=== PATIENT | female | born 1985 | race Caucasian/White ===

== ENCOUNTER 2018-01-19 20:28 | Emergency (ER) | payer OTHER ==
[2018-01-19 20:36] VITALS: BP 123/54; PULSE 110; TEMP 98.8; BMI 32.1
[2018-01-19] MEDS ORDERED: ACETAMINOPHEN 325 MG TABLET (FP) PO ONE (20:36)
--- NOTE | 2018-01-19 20:37 | PDOC ---
Rapid Medical Evaluation Time Seen by Provider: 01/19/18 20:29 Medical Evaluation: Allergies Allergy/AdvReac Type Severity Reaction Status Date / Time No Known Allergies Allergy Verified 11/13/17 21:21 01/19/18 20:32 Pt presents for 2 hours of lower abdominal pain. Pt is 16 weeks . States it feels like a cramping pain. Denies fevers, chills, vaginal bleeding. Exam: Pt appears anxious. Sitting in wheel chair. Suprapubic tenderness on exam. abdomen soft non-distended no rebound or guarding Orders: Labs, US, Tyenol Pt to proceed to ED for further evaluation Discharge Disposition - Diagnosis Abdominal pain during Qualifiers: Trimester: second trimester Qualified Code(s): O26.892 - Other specified related conditions, second trimester; R10.9 - Unspecified abdominal pain - Referrals - Patient Instructions - Post Discharge Activity
[2018-01-19 21:56] LABS: BASO % 0.4 % (0-2.0); EOS % 0.6 % (0-4.5); HEMATOCRIT 32.3 % (32.4-45.2); HEMOGLOBIN 10.8 GM/dL (10.7-15.3); LYMPH % 22.8 % (8-40); MCH 28.1 pg (25.7-33.7); MCHC 33.5 g/dl (32.0-36.0); MEAN CELL VOLUME 83.9 fl (80-96); MEAN PLT VOLUME 7.7 fl (7.5-11.1); MONO % 5.9 % (3.8-10.2); NEUT % 70.3 % (42.8-82.8); PLATELET COUNT 353 K/MM3 (134-434); RBC 3.85 M/mm3 (3.60-5.2); RDW 14.5 % (11.6-15.6); WHITE BLOOD COUNT 9.3 K/mm3 (4.0-10.0)
[2018-01-19 22:27] LABS: ALBUMIN 3.2 g/dl (3.4-5.0); ANION GAP 7 (8-16); BILIRUBIN,TOTAL 0.3 mg/dL (0.2-1.0); BLOOD UREA NITROGEN 4 mg/dL (7-18); CALCIUM 9.3 mg/dL (8.5-10.1); CHLORIDE 104 mmol/L (98-107); CO2 24 mmol/L (21-32); CREATININE 0.5 mg/dL (0.55-1.02); GLUCOSE,RANDOM 91 mg/dL (74-106); POTASSIUM 4.7 mmol/L (3.5-5.1); SGOT/AST 25 U/L (15-37); SGPT/ALT 27 U/L (12-78); SODIUM 135 mmol/L (136-145)
--- NOTE | 2018-01-19 22:31 | PDOC ---
History of Present Illness - General Chief Complaint: Pain Stated Complaint: PAIN Time Seen by Provider: 01/19/18 20:29 History Source: Patient - History of Present Illness Initial Comments: 01/19/18 23:49 32 year old 16 week female with pelvic pain x1 day. denies urinary symptoms 01/20/18 00:07 Past History - Past Medical History Allergies/Adverse Reactions: Allergies Allergy/AdvReac Type Severity Reaction Status Date / Time No Known Allergies Allergy Verified 01/19/18 20:33 COPD: No Other medical history: Pt denies - Surgical History Appendectomy: Yes Cardiac Surgery: Yes (heart surgery at 3 years old) - Suicide/Smoking/Psychosocial Hx Smoking History: Never smoked Have you smoked in the past 12 months: No Information on smoking cessation initiated: No Hx Alcohol Use: No Drug/Substance Use Hx: No Substance Use Type: None *Physical Exam - Vital Signs Last Vital Signs Temp Pulse Resp BP Pulse Ox 98.8 F 110 H 18 123/54 99 01/19/18 20:34 01/19/18 20:34 01/19/18 20:34 01/19/18 20:34 01/19/18 20:34 - Physical Exam General Appearance: Yes: Appropriately Dressed Respiratory/Chest: positive: Lungs Clear, Normal Breath Sounds Female Pelvic Exam: positive: normal external exam, cervical os closed, other ( white discharge in vaginal vault) Gastrointestinal/Abdominal: positive: Normal Bowel Sounds, Soft Musculoskeletal: positive: Normal Inspection. negative: CVA Tenderness Extremity: positive: Normal Capillary Refill Integumentary: positive: Normal Color, Dry, Warm Neurologic: positive: Fully Oriented, Alert, Normal Mood/Affect ED Treatment Course - LABORATORY CBC & Chemistry Diagram: 01/19/18 21:38 01/19/18 21:38 - ADDITIONAL ORDERS Additional order review: Laboratory Results 01/19/18 21:38 Sodium 135 L Potassium 4.7 Chloride 104 Carbon Dioxide 24 Anion Gap 7 L BUN 4 L Creatinine 0.5 L Creat Clearance w eGFR > 60 Random Glucose 91 Calcium 9.3 Total Bilirubin 0.3 AST 25 ALT 27 Albumin 3.2 L 01/19/18 21:38 RBC 3.85 MCV 83.9 MCHC 33.5 RDW 14.5 MPV 7.7 Neutrophils % 70.3 Lymphocytes % 22.8 Monocytes % 5.9 Eosinophils % 0.6 Basophils % 0.4 - Medications Given in the ED: ED Medications Discontinued Medications Generic Name Dose Route Start Last Admin Trade Name Mello PRN Reason Stop Dose Admin Acetaminophen 650 mg 01/19/18 20:36 01/19/18 20:37 Tylenol - PO 01/19/18 20:37 650 mg ONCE ONE Administration *DC/Admit/Observation/Transfer Diagnosis at time of Disposition: Abdominal pain during Qualifiers: Trimester: second trimester Qualified Code(s): O26.892 - Other specified related conditions, second trimester - Discharge Dispostion Disposition: HOME - Referrals Referrals: ON STAFF,NOT [Primary Care Provider] - - Patient Instructions Printed Discharge Instructions: DI for Pelvic Pain Additional Instructions: drink plenty of fluids follow up with [facility] as soon as possible, return to the ER if worsening symptoms, vaginal bleeding, severe abdominal pain , fever - Post Discharge Activity
[2018-01-19 22:43] LABS: ALK PHOS 74 U/L (45-117); TOT PROT 7.6 g/dl (6.4-8.2)
--- NOTE | 2018-01-19 23:03 | PDOC ---
*Physical Exam - Vital Signs Last Vital Signs Temp Pulse Resp BP Pulse Ox 98.8 F 110 H 18 123/54 99 01/19/18 20:34 01/19/18 20:34 01/19/18 20:34 01/19/18 20:34 01/19/18 20:34 ED Treatment Course - LABORATORY CBC & Chemistry Diagram: 01/19/18 21:38 01/19/18 21:38 - ADDITIONAL ORDERS Additional order review: Laboratory Results 01/19/18 21:38 Sodium 135 L Potassium 4.7 Chloride 104 Carbon Dioxide 24 Anion Gap 7 L BUN 4 L Creatinine 0.5 L Creat Clearance w eGFR > 60 Random Glucose 91 Calcium 9.3 Total Bilirubin 0.3 AST 25 ALT 27 Alkaline Phosphatase 74 Total Protein 7.6 Albumin 3.2 L Beta HCG, Quant .7 01/19/18 21:38 RBC 3.85 MCV 83.9 MCHC 33.5 RDW 14.5 MPV 7.7 Neutrophils % 70.3 Lymphocytes % 22.8 Monocytes % 5.9 Eosinophils % 0.6 Basophils % 0.4 - Medications Given in the ED: ED Medications Discontinued Medications Generic Name Dose Route Start Last Admin Trade Name Hairq PRN Reason Stop Dose Admin Acetaminophen 650 mg 01/19/18 20:36 01/19/18 20:37 Tylenol - PO 01/19/18 20:37 650 mg ONCE ONE Administration Medical Decision Making - Medical Decision Making 01/19/18 23:03 agree with care from LAINEY Gill *DC/Admit/Observation/Transfer Diagnosis at time of Disposition: Abdominal pain during Qualifiers: Trimester: second trimester Qualified Code(s): O26.892 - Other specified related conditions, second trimester - Referrals Referrals: ON STAFF,NOT [Primary Care Provider] - - Patient Instructions - Post Discharge Activity
[2018-01-20 00:02] LABS: URINE APPEARANCE CLEAR; URINE BILIRUBIN NEGATIVE (<2.0 mg/dL); URINE COLOR STRAW; URINE GLUCOSE (UA) NEGATIVE (NEGATIVE); URINE KETONE NEGATIVE (NEGATIVE); URINE LEUK ESTERASE NEGATIVE (NEGATIVE); URINE NITRITE NEGATIVE (NEGATIVE); URINE PROTEIN NEGATIVE (NEGATIVE); URINE UROBILINOGEN NEGATIVE mg/dL (0.2-1.0)
== END 2018-01-20 01:04 | disposition home or self-care (01) ==
LOC: JER 20:28
DX: O26.892 Other specified pregnancy related conditions, second trimester (principal); Z3A.16 16 weeks gestation of pregnancy
CPT/HCPCS: 36415; 76801-TC; 80053; 81003; 84702; 85025; 87086; 99281-25